=== PATIENT | male | born 1945 | race Caucasian/White ===

== ENCOUNTER 2024-12-20 14:58 | Emergency (ER) | payer MEDICARE ==
[2024-12-20] MEDS ORDERED: diphenhydrAMINE 50 MG/ML VIAL ONE (16:00)
[2024-12-20] MEDS ORDERED: Famotidine/PF 20 mg/2ml Vial ONE (16:00)
[2024-12-20] MEDS ORDERED: Dexamethasone 10 MG/ML VIAL ONE (16:00)
== END 2024-12-20 17:02 ==
LOC: CSHERS 14:58
DX: T78.3XXA Angioneurotic edema, initial encounter (principal)
CPT/HCPCS: 96372; 96374; 96375; 99284; J0169; J1100; J1200; J1308